=== PATIENT | male | born 1980 | race African-American/Black ===

== ENCOUNTER 2016-12-02 11:26 | Emergency (ER) | payer OTHER ==
[~2016-12-02] VITALS: Ht 177.8 cm; Wt 78.0 kg
[~2016-12-02 11:26] MED LIST: ACETAMINOPHEN-1 EAC1 ORAL; AUGMENTIN 875-1 EAC1 ORAL; AZITHROMYCIN250 MG ORAL; BACTRIM DS TAB1 EAC1 ORAL; BENTYL10 MG ORAL; CIPROFLOXACIN500 M2 ORAL; ENTEX T 60-3751 EACH PO; GABAPENTIN300 MG ORAL; PEPCID40 MG PO; TIVICAY50 MG PO; TRAMADOL HCL50 MG ORAL; TRUVADA 200 MG1 EAC1 ORAL; ZITHROMAX TRI-500 MG ORAL; ZOFRAN ODT4 MG ORAL; ZOFRAN4 MG ORAL
[2016-12-02] MEDS ORDERED: ISENTRESS400 MG ORAL (11:53)
[2016-12-02] MEDS ORDERED: PAMELOR10 MG ORAL (11:54)
[2016-12-02 12:10] VITALS: BP 105/68
--- NOTE | 2016-12-02 12:25 | Emergency Room Report ---
History of Present Illness General Chief Complaint: Upper Respiratory Illness Source: Patient Present Illness HPI 36-year-old male presents emergency department complaining of cough, nasal congestion, increased phlegm, rhinorrhea times one week. Patient states in using [id number] cough and cold remedies with minimal relief. Patient states initially he had fevers and chills however this has subsided. Patient also states that he initially had a lot of body aches and fatigue and those are beginning to resolve. Patient denies history of asthma or COPD. Patient denies neck pain, neck stiffness or headache.Denies CP, Palpitations, LOC, AMS, dizziness, Changes in Vision, Sensation, paresthesias, or a sudden severe headache. Allergies: Coded Allergies: IBUPROFEN (Verified Allergy, Mild, 01/07/14) SWOLLEN THROAT MORPHINE (Verified Allergy, Mild, 03/23/14) "My hert beat is accelerating." Patient History Past Medical History: see triage record Past Surgical History: none Pertinent Family History: none Immunizations: UTD Reviewed Nursing Documentation: PMH: Agreed, PSxH: Agreed Review of Systems All Other Systems: negative except mentioned in HPI Physical Exam Vital Signs Date Time Temp Pulse Resp B/P Pulse Ox O2 Delivery O2 Flow Rate FiO2 12/02/16 11:47 98.4 76 16 105/68 94 Room Air Sp02 EP Interpretation: reviewed, normal General Appearance: no apparent distress, alert, GCS 15, non-toxic Head: normocephalic, atraumatic Eyes: bilateral eye PERRL, bilateral eye normal inspection ENT: hearing grossly normal, normal pharynx, no angioedema, normal voice, TMs + canals normal, uvula midline, moist mucus membranes, nasal congestion Neck: full range of motion, supple/symm/no masses Respiratory: chest non-tender, lungs clear, normal breath sounds, speaking full sentences Cardiovascular #1: regular rate, rhythm, no edema Rectal: deferred Genitourinary: normal inspection, no CVA tenderness Musculoskeletal: back normal, gait/station normal, normal range of motion, non- tender, no calf tenderness Neurologic: alert, oriented x3, responsive, motor strength/tone normal, sensory intact, speech normal Psychiatric: judgement/insight normal, memory normal, mood/affect normal, no suicidal/homicidal ideation Skin: normal color, no rash, warm/dry, well hydrated Lymphatic: no adenopathy Medical Decision Making PA Attestation Dr. Worthy is my supervising Physician whom patient management has been discussed with. Diagnostic Impression: Primary Impression: Viral upper respiratory infection ER Course Pt. presents to the ED c/o cough , nasal congestion, rhinorrhea, and increased phlegm x 1 week. Ddx considered but are not limited to URI, pneumonia, PE, strep pharyngitis, meningitis. Vital signs: Pt. is afebrile, the remaining VS are WNL H&PE are most consistent with URI- no meningeal signs, oropharynx is not involved, no evidence of bacterial infection at this time. ORDERS: none required at this time, the diagnosis is clinical ED INTERVENTIONS: None required at this time. --PT. EDUCATION: Discussed antibiotic resistance with inappropriate prescribing of antibiotics for viral illnesses. Discussed signs and symptoms to indicate viral illness versus bacterial illness. DISCHARGE: At this time pt. is stable for d/c to home. Will provide printed patient care instructions, and any necessary prescriptions. Care plan and follow up instructions have been discussed with the patient prior to discharge. Last Vital Signs Date Time Temp Pulse Resp B/P Pulse Ox O2 Delivery O2 Flow Rate FiO2 12/02/16 11:47 98.4 76 16 105/68 94 Room Air Disposition: HOME, SELF-CARE Condition: Stable Patient Instructions: Upper Respiratory Infection, Adult Additional Instructions: Take medications as directed. Follow up with PCP in 3-5 days Return sooner to ED if new symptoms occur, or current symptoms become worse. Do not drink alcohol, drive, or operate heavy machinery while taking Cough Syrup as this may cause drowsiness. Megan Bowman Dec 02, 2016 12:25
[2016-12-02] MEDS ORDERED: PROMETHAZINE-D118 ML ORAL (12:28)
[2016-12-02] MEDS ORDERED: GUAIFENESIN1200 MG PO (12:28)
[2016-12-02] MEDS ORDERED: CLARITIN-D 241 EACH PO (12:28)
[2016-12-02 12:48] VITALS: BP 105/68
== END 2016-12-02 12:48 | disposition home or self-care (01) ==
LOC: EMR 12:30
DX: J06.9 Acute upper respiratory infection, unspecified (principal); B34.9 Viral infection, unspecified; Z88.6 Allergy status to analgesic agent
CPT/HCPCS: 99282